=== PATIENT | male | born 1995 | race Caucasian/White ===

== ENCOUNTER 2024-08-23 18:13 | Emergency (ER) | payer OTHER ==
[2024-08-23 18:36] VITALS: TEMP 97.8
[2024-08-23 19:37] LABS: BASOPHIL % 0.6 % (0.2-1.2); Basophil (Absolute #) 0.03 x10^3/uL (0.01-0.08); Eosinophil % 0.2 % (0.8-7.0); Eosinophil (Absolute #) 0.01 x10^3/uL (0.04-0.54); Hematocrit 41.3 % (40.1-51.0); IMMATURE GRAN # 0.01 x10^3u/L (0.001-0.031); IMMATURE GRAN % 0.2 % (0.001-0.429); Lymphocyte (Absolute #) 2.05 x10^3/uL (1.32-3.57); Lymphocytes % 43.2 % (21.8-53.1); Mean Cell Volume 86.2 fL (79.0-92.2); Mean Corpuscular Hemoglobin 29.2 pg (25.7-32.2); Mean Corpuscular Hgb Concent. 33.9 g/dL (32.3-36.5); Mean Platelet Volume 9.3 fL (9.4-12.4); Monocyte (Absolute #) 0.34 x10^3/uL (0.30-0.82); Monocytes % 7.2 % (5.3-12.2); Neutrophil % 48.6 % (34.0-67.9); Platelet Count 180 x10^3/uL (163-337); Red Blood Count 4.79 x10^6/uL (4.63-6.08); Red Cell Distribution Width 12.2 % (11.6-14.4); White Blood Count 4.7 x10^3/uL (4.23-9.07)
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
[2024-08-23] MEDS: BABY ASPIRIN 81 MG CHEW PO ONE (19:38)
[2024-08-23 19:44] LABS: Appearance Clear (Clear); Bacteria None Seen /HPF (None Seen); Bilirubin Negative (Negative); Blood Negative (Negative); Epithelial Cells None Seen /HPF (None Seen); Glucose, Urine Negative (Negative); Hyaline Casts NONE SEEN /LPF (0-2); Ketones Negative (Negative); Leukocyte Esterase Negative (Negative); Nitrite Negative (Negative); Ph 5.5 (4.6-8.0); Protein,Urine Dip Negative (Negative); RBC 0-2 /HPF (0-5); Urobilinogen 0.2 mg/dL (0.2); WBC 0-2 /HPF (0-5)
[2024-08-23 19:47] LABS: ADD URINE CULTURE? NO (NO)
[2024-08-23 19:51] LABS: ISTAT CREA 1.1 mg/dL (0.6-1.3); ISTAT K 3.7 mmol/L (3.5-4.9); ISTAT iCA 1.16 mmol/L (1.12-1.32)
[2024-08-23 22:12] LABS: ALBUMIN 4.8 g/dL (3.5-5.0); BILIRUBIN,TOTAL 0.6 mg/dL (0.2-1.3); Calcium 9.5 mg/dL (8.4-10.2); Creatinine 1 0.93 mg/dL (0.66-1.25); Potassium 3.9 mmol/L (3.5-5.1); Total Protein 7.5 g/dL (6.3-8.2)
[2024-08-24 00:05] VITALS: BP 112/71; PULSE 54; RESP 14; O2SAT 98
--- NOTE | 2024-08-24 09:12 | XRAY ---
Indication: Chest pain. Comparison: January 19, 2023 Portable chest again demonstrates normal heart and lungs with a few incidental tiny right lung calcified granulomas. Bony thorax intact again with stable tiny right humeral neck bone island. Impression: Continued nonacute chest with chronic features.
== END 2024-08-24 00:05 | disposition home or self-care (01) ==
LOC: ED 18:13
DX: R07.89 Other chest pain (principal); R05.1 Acute cough; Z79.899 Other long term (current) drug therapy; Z72.0 Tobacco use
CPT/HCPCS: 36000; 36415; 71045; 80047; 80053; 81001; 84484; 85025; 85379; 93005; 93041; 94760; 99284; A9270-GY